=== PATIENT | male | born 1980 | race Caucasian/White ===

== ENCOUNTER → 2017-08-02 | Outpatient (CLI) | payer BC ==
--- NOTE | 2017-08-02 08:48 | US ---
EXAMINATION TYPE: US liver DATE OF EXAM: 08/02/2017 COMPARISON: NONE CLINICAL HISTORY: 37-year-old male Elevated liver enzymes, family history of Hemochromatosis. TECHNIQUE: Multiple sonographic images of the right upper quadrant are obtained. FINDINGS: Liver Length: 17.5 cm Gallbladder Wall: 0.2 cm CBD: 0.3 cm Right Kidney: 10.6 x 4.5 x 4.3 cm Pancreas: Tail obscured by overlying bowel gas, visualized portions show no gross abnormality. Liver: Measuring upper limits of normal in size. Heterogeneous, echogenic, and attenuating. Gallbladder: wnl Evidence for sonographic Barrientos's sign: No CBD: wnl as visualized, distal portion obscured by bowel gas Right Kidney: No hydronephrosis. IMPRESSION: Borderline hepatomegaly. There is diffuse increased echogenicity suggesting at least moderate hepatic steatosis. Correlate with LFTs, lipid profile, and patient risk factors.
== END ==
LOC: RADUSWWP 06:59
PROVIDERS: ATTEND Internal Medicine Hematology & Oncology
DX: R16.0 Hepatomegaly, not elsewhere classified (principal)
CPT/HCPCS: 76705

== ENCOUNTER → 2020-05-04 | Outpatient (CLI) | payer BC ==
--- NOTE | 2020-05-04 21:56 | MR ---
EXAMINATION TYPE: MR liver wo/w con DATE OF EXAM: 05/04/2020 COMPARISON: Ultrasound liver August 02, 2017. HISTORY: High Iron content, E83.110 Hereditary hemochromatosis CONTRAST: Standard multiplanar, multisequence MRI departmental protocol utilizing 10 mL intravenous Gadavist ga dolinium contrast. Imaging performed of the abdomen focusing on the liver. FINDINGS: Liver: Liver size measures within normal limits. No concerning solid or cystic mass. No significant s ignal decrease or increase on in and out of phase imaging. Suboptimal early arterial phase. Patent ma in portal vein without dilatation or filling defect. Patent small caliber hepatic veins draining into IVC. No surrounding ascites. Other: Lung bases are clear. Mild splenomegaly at 13.5 cm long axis axial image 379. Pancreas and bot h adrenal glands are within normal limits. No concerning renal mass or hydronephrosis. No suspicious small or large bowel dilatation. No abdominal ascites. Osseous structures are intact. Small hemangiom a right L2 vertebral body level. IMPRESSION: No worrisome intrahepatic mass or intrahepatic ductal dilatation. No significant infiltra tive process currently. Normal-size liver without ascites.
== END | disposition home or self-care (01) ==
LOC: RADMRIMAIN 17:05
PROVIDERS: ATTEND Internal Medicine Hematology & Oncology
DX: E83.110 Hereditary hemochromatosis (principal)
CPT/HCPCS: 74183; A9585

== ENCOUNTER 2023-06-14 07:37 | Inpatient (IN) | payer BC ==
[2023-06-14] MEDS ORDERED: SODIUM CHLORIDE 0.9% 1,000 ML IV STA ×2 (08:10→11:14)
[2023-06-14] MEDS ORDERED: ONDANSETRON 4 MG/2 ML VIAL IVP STA (08:10)
[2023-06-14] MEDS ORDERED: KETOROLAC 15 MG/ML 1 ML VIAL IVP STA (08:10)
--- NOTE | 2023-06-14 08:20 | ED ---
Back Pain HPI - General Chief Complaint: Back Pain/Injury Stated Complaint: Dizziness, N/V Time Seen by Provider: 06/14/23 07:59 Source: patient Limitations: no limitations - History of Present Illness Initial Comments: Patient is a 42-year-old male presenting to the emergency room with sudden onset of left flank pain earlier this morning with associated dizziness nausea and vomiting. He reports when he first woke this morning he was feeling fine and then suddenly he developed left flank pain that has been severe in nature. He took ibuprofen at home with no significant change in symptoms. He denies any chest pain, shortness of breath, abdominal pain, right-sided flank pain, urinary frequency, dysuria, urinary hesitancy, hematuria, fevers or chills. He denies any known history of nephrolithiasis; his only past medical history is of gout. - Related Data Home Medications Medication Instructions Recorded Confirmed allopurinoL [Zyloprim] 300 mg PO BID 06/14/23 06/14/23 Allergies Allergy/AdvReac Type Severity Reaction Status Date / Time No Known Allergies Allergy Verified 06/14/23 12:54 Review of Systems ROS Statement: Those systems with pertinent positive or pertinent negative responses have been documented in the HPI. ROS Other: All systems not noted in ROS Statement are negative. Past Medical History Additional Past Medical History / Comment(s): gout History of Any Multi-Drug Resistant Organisms: None Reported Past Surgical History: No Surgical Hx Reported Past Psychological History: No Psychological Hx Reported Smoking Status: Never smoker Past Alcohol Use History: Occasional Past Drug Use History: None Reported General Exam Limitations: no limitations General appearance: alert, other (in pain) Head exam: Present: atraumatic, normocephalic, normal inspection Eye exam: Present: normal appearance, PERRL, EOMI. Absent: scleral icterus, conjunctival injection, periorbital swelling ENT exam: Present: normal exam, mucous membranes moist Neck exam: Present: normal inspection, full ROM Respiratory exam: Present: normal lung sounds bilaterally. Absent: respiratory distress, wheezes, rales, rhonchi, stridor Cardiovascular Exam: Present: regular rate, normal rhythm, normal heart sounds. Absent: systolic murmur, diastolic murmur, rubs, gallop, clicks GI/Abdominal exam: Present: soft, normal bowel sounds. Absent: distended, tenderness, guarding, rebound, rigid Extremities exam: Present: normal inspection, full ROM. Absent: pedal edema, joint swelling Back exam: Present: normal inspection, full ROM, CVA tenderness (L). Absent: CVA tenderness (R) Neurological exam: Present: alert, oriented X3, CN II-XII intact Psychiatric exam: Present: normal affect, normal mood Course Vital Signs 06/14/23 06/14/23 07:52 10:30 Temperature 97.8 F Pulse Rate 64 67 Respiratory 18 18 Rate Blood Pressure 121/77 114/70 O2 Sat by Pulse 100 99 Oximetry Medical Decision Making - Medical Decision Making Was pt. sent in by a medical professional or institution (, PA, COMPRESS ENGINEER, urgent care, hospital, or retirement...) When possible be specific @ -No Did you speak to anyone other than the patient for history (EMS, parent, family, police, friend...)? What history was obtained from this source @ -No Did you review nursing and triage notes (agree or disagree)? Why? @ -I reviewed and agree with nursing and triage notes Were old charts reviewed (outside hosp., previous admission, EMS record, old EKG, old radiological studies, urgent care reports/EKG's, retirement records)? Report findings @ -No old charts were reviewed Differential Diagnosis (chest pain, altered mental status, abdominal pain women, abdominal pain men, vaginal bleeding, weakness, fever, dyspnea, syncope, he adache, dizziness, GI bleed, back pain, seizure, CVA, palpatations, mental health, musculoskeletal)? @ -Differential Back Pain: Strain, zoster, cauda equina syndrome, epidural abscess, vertebral osteomyelitis, discitis, fracture, subluxation, disc herniation, DJD, spinal stenosis, dissection, AAA, pancreatitis, peptic ulcer disease, pyelonephritis, kidney stone, this is not meant to be an all-inclusive list. EKG interpreted by me (3pts min.). @ -None done X-rays interpreted by me (1pt min.). @ -None done CT interpreted by me (1pt min.). @ -CT abdomen and pelvis: No free fluid or air in the abdomen. Left renal calculi with mild hydronephrosis. Report per radiologist mild left renal edema and pernephric stranding U/S interpreted by me (1pt. min.). @ -None done What testing was considered but not performed or refused? (CT, X-rays, U/S, labs)? Why? @ -None What meds were considered but not given or refused? Why? @ -None Did you discuss the management of the patient with other professionals (professionals i.e. , PA, COMPRESS ENGINEER, lab, RT, psych nurse, clinical social worker, residential coordinator, teacher, personnel officer, ed case manager)? Give summary @ -Yes, spoke with Dr. Oliver twice regarding patient's presentation he initially advised attempt pain control and discharge on oral antibiotics and Flomax; second conversation included lack of pain control despite Toradol, morphine and Dilaudid along with 2 IV fluid boluses and a gram of Rocephin. He advised admission to his services with plan for possible intervention tomorrow. Was smoking cessation discussed for >3mins.? @ -No Was critical care preformed (if so, how long)? @ -No Were there social determinants of health that impacted care today? How? (Homelessness, low income, unemployed, alcoholism, drug addiction, transportation, low edu. Level, literacy, decrease access to med. care, half-way, rehab)? @ -No Was there de-escalation of care discussed even if they declined (Discuss DNR or withdrawal of care, Hospice)? DNR status @ -No What co-morbidities impacted this encounter? (DM, HTN, Smoking, COPD, CAD, Cancer, CVA, ARF, Chemo, Hep., AIDS, mental health diagnosis, sleep apnea, morbid obesity)? @ -None Was patient admitted / discharged? Hospital course, mention meds given and route, prescriptions, significant lab abnormalities, going to OR and other pe rtinent info. @ -42-year-old male presenting to the emergency room with sudden onset of left flank pain earlier this morning with associated dizziness nausea and vomiting. He reports when he first woke this morning he was feeling fine and then suddenly he developed left flank pain that has been severe in nature. Posterior flank pain workup with CBC, CMP, amylase, lipase, urinalysis with culture along with CT of the abdomen and pelvis without contrast. Will give Zofr an for nausea, 1 L of IV fluids and 15 mg of Toradol. Pain continues despite Toradol will give morphine. Laboratory studies include a normal CBC and a CMP with elevated glucose at 144 elevated albumin of 5.1 no other abnormalities on CMP including a normal renal function and normal electrolytes. Urinalysis reveals trace protein trace blood and moderate leukocyte esterase, 9 RBCs, 28 wbc, rare WBC clumps and rare mucus with no bacteria identified. Computed tomography scan shows 2 mm left renal calculi in the UVJ with mild hydronephrosis, renal edema and perinephric stranding. Pain persists despite morphine. Spoke with Dr. Llanes twice regarding patient's presentation inability to control pain; he is accepting of admission to his service for pain control and possible intervention for obstructive nephrolithiasis. Will place admission orders with continued pain control, IV hydration and ceftriaxone daily. Will admit patient in stable condition to observation under urology for further evaluation and treatment of obstructive nephrolithiasis Undiagnosed new problem with uncertain prognosis? @ -No Drug Therapy requiring intensive monitoring for toxicity (Heparin, Nitro, Insulin, Cardizem)? @ -No Were any procedures done? @ -No Diagnosis/symptom? @ -Obstructive nephrolithiasis Acute, or Chronic, or Acute on Chronic? @ -Acute Uncomplicated (without systemic symptoms) or Complicated (systemic symptoms)? @ -Complicated Side effects of treatment? @ -No Exacerbation, Progression, or Severe Exacerbation? @ -No Poses a threat to life or bodily function? How? (Chest pain, [place], [place], pneumonia, PE, COPD, DKA, ARF, appy, cholecystitis, CVA, Diverticulitis, Homicidal, Suicidal, threat to staff... and all critical care pts) @ -Yes, mild hydronephrosis with perinephric stranding at risk for worsening infective renal stone, sepsis, septic shock and . Case discussed with Dr. Brennan. - Lab Data Result diagrams: 06/14/23 08:42 06/14/23 08:42 Lab Results 06/14/23 06/14/23 06/14/23 Range/Units 07:55 08:42 08:42 WBC 8.3 (3.8-10.6) k/uL RBC 5.02 (4.30-5.90) m/uL Hgb 16.5 (13.0-17.5) gm/dL Hct 48.7 (39.0-53.0) % MCV 96.9 (80.0-100.0) fL MCH 32.9 (25.0-35.0) pg MCHC 34.0 (31.0-37.0) g/dL RDW 13.0 (11.5-15.5) % Plt Count 182 (150-450) k/uL MPV 7.8 Neutrophils % 69 % Lymphocytes % 22 % Monocytes % 5 % Eosinophils % 2 % Basophils % 0 % Neutrophils # 5.7 (1.3-7.7) k/uL Lymphocytes # 1.8 (1.0-4.8) k/uL Monocytes # 0.4 (0-1.0) k/uL Eosinophils # 0.2 (0-0.7) k/uL Basophils # 0.0 (0-0.2) k/uL Sodium 138 (137-145) mmol/L Potassium 4.1 (3.5-5.1) mmol/L Chloride 101 (98-107) mmol/L Carbon Dioxide 22 (22-30) mmol/L Anion Gap 15 mmol/L BUN 17 (9-20) mg/dL Creatinine 1.05 (0.66-1.25) mg/dL Est GFR (CKD-EPI)AfAm >90 (>60 ml/min/1.73 sqM) Est GFR (CKD-EPI)NonAf 87 (>60 ml/min/1.73 sqM) Glucose 144 H (74-99) mg/dL Calcium 9.5 (8.4-10.2) mg/dL Total Bilirubin 1.3 (0.2-1.3) mg/dL AST 33 (17-59) U/L ALT 29 (4-49) U/L Alkaline Phosphatase 72 (38-126) U/L Total Protein 8.0 (6.3-8.2) g/dL Albumin 5.1 H (3.5-5.0) g/dL Lipase 61 (23-300) U/L Urine Color Yellow Urine Appearance Clear (Clear) Urine pH 6.5 (5.0-8.0) Ur Specific [place] 1.017 (1.001-1.035) Urine Protein Trace H (Negative) Urine Glucose (UA) Negative (Negative) Urine Ketones Negative (Negative) Urine Blood Trace H (Negative) Urine Nitrite Negative (Negative) Urine Bilirubin Negative (Negative) Urine Urobilinogen <2.0 (<2.0) mg/dL Ur Leukocyte Esterase Moderate H (Negative) Urine RBC 9 H (0-5) /hpf Urine WBC 28 H (0-5) /hpf Urine WBC Clumps Rare H (None) /hpf Urine Mucus Rare H (None) /hpf - Radiology Data Radiology results: report reviewed, image reviewed Disposition Clinical Impression: Hydronephrosis, Nephrolithiasis Disposition: ADMITTED IP TO THIS [facility] Condition: Stable Referrals: Gagan Caceres [Primary Care Provider] - 1-2 days Time of Disposition: 12:14
[2023-06-14 08:36] LABS: Appearance,Urine Clear (Clear); Bilirubin,Urine Negative (Negative); Blood,Urine Trace (Negative); Glucose,Urine (UA) Negative (Negative); Ketones,Urine Negative (Negative); Leukocyte Esterase,Urine Moderate (Negative); Mucus,Urine Rare /hpf; Nitrite,Urine Negative (Negative); PH, Urine 6.5 (5.0-8.0); Protein,Urine Trace (Negative); RBC,Urine 9 /hpf (0-5); Specific Gravity,Urine 1.017 (1.001-1.035); Urobilinogen,Urine <2.0 mg/dL (<2.0); WBC,Urine 28 /hpf (0-5)
[2023-06-14 08:42] LABS: Color,Urine Yellow
[2023-06-14] MEDS ORDERED: MORPHINE SULFATE 4 MG/ML SYRINGE IVP STA (09:32)
[2023-06-14 09:41] LABS: ALT 29 U/L (4-49); AST 33 U/L (17-59); African American GFR (CKD) >90 (>60 ml/min/1.73 sqM); Albumin 5.1 g/dL (3.5-5.0); Alkaline Phosphatase 72 U/L (38-126); Anion Gap 15 mmol/L; Blood Urea Nitrogen 17 mg/dL (9-20); Calcium 9.5 mg/dL (8.4-10.2); Carbon Dioxide 22 mmol/L (22-30); Chloride 101 mmol/L (98-107); Glucose 144 mg/dL (74-99); Lipase 61 U/L (23-300); Non-African American GFR(CKD) 87 (>60 ml/min/1.73 sqM); Potassium 4.1 mmol/L (3.5-5.1); Sodium 138 mmol/L (137-145); Total Bilirubin 1.3 mg/dL (0.2-1.3)
[2023-06-14 09:49] LABS: Basophils % (A) 0 %; Eosinophils # (A) 0.2 k/uL (0-0.7); Eosinophils % (A) 2 %; HCT 48.7 % (39.0-53.0); HGB 16.5 gm/dL (13.0-17.5); Lymphocytes # (A) 1.8 k/uL (1.0-4.8); Lymphocytes % (A) 22 %; MCH 32.9 pg (25.0-35.0); MCV 96.9 fL (80.0-100.0); Mean Platelet Volume 7.8; Monocytes # (A) 0.4 k/uL (0-1.0); Monocytes % (A) 5 %; Neutrophils # (A) 5.7 k/uL (1.3-7.7); Neutrophils % (A) 69 %; Platelet Count 182 k/uL (150-450); RBC 5.02 m/uL (4.30-5.90); WBC 8.3 k/uL (3.8-10.6)
--- NOTE | 2023-06-14 10:11 | CT ---
EXAMINATION TYPE: CT abdomen pelvis wo con DATE OF EXAM: 06/14/2023 COMPARISON: None HISTORY: left flank pain CT DLP: 780.4 mGycm Examination of the solid and hollow viscera is limited given the lack of contrast. FINDINGS: LUNG BASES: No evidence for nodule. No evidence for infiltrate. LIVER/GB: The gallbladder is unremarkable. No space-occupying hepatic lesion. PANCREAS: No pancreatic mass identified. No inflammatory process seen. SPLEEN: No evidence for splenomegaly. No intrasplenic lesions seen. ADRENALS: No adrenal nodules identified. No evidence for thickening. KIDNEYS: No evidence for renal mass. There is a 2 mm left UVJ calculus resulting in mild left-sided h ydronephrosis. Mild left renal edema and perinephric stranding. Nonobstructing calculus measuring 2 m m or incised upper pole right kidney. Nonobstructing 1 mm calculi midpole left kidney and lower pole left kidney. BOWEL: Appendix has a normal appearance. No evidence of bowel obstruction. No inflammatory process. Lymph nodes: No evidence for adenopathy greater than 1 cm. Abdominal aorta: Atheromatous changes seen. No evidence for aneurysm. Genital organs: No significant abnormality. Other: No significant abnormality. IMPRESSION: There is a 2 mm left UVJ calculus resulting in mild left-sided hydronephrosis. Mild left renal edema and perinephric stranding.
[2023-06-14] MEDS ORDERED: cefTRIAXone IN SWFI 1,000 MG/10 ML SYRINGE IVP STA (10:52)
[2023-06-14] MEDS ORDERED: NALOXONE 0.4 MG/ML 1 ML VIAL IV PRN (12:14)
[2023-06-14] MEDS ORDERED: ONDANSETRON 4 MG/2 ML VIAL IVP PRN (12:14)
[2023-06-14] MEDS ORDERED: HYDROmorphone 1 MG/ML 1 ML SYRINGE IVP PRN (12:14)
[2023-06-14] MEDS ORDERED: KETOROLAC 15 MG/ML 1 ML VIAL IVP PRN (12:14)
[2023-06-14] MEDS ORDERED: HYDROcodone/APAP 5-325MG 1 EACH TAB PO PRN (12:14)
[2023-06-14] MEDS ORDERED: SODIUM CHLORIDE 0.9% 1,000 ML IV SCH (12:15)
[2023-06-14] MEDS ORDERED: HYDROmorphone 0.5 MG/0.5 ML SYRINGE IVP STA (12:24)
--- NOTE | 2023-06-14 17:58 | P.GSHP ---
History of Present Illness H&P Date: 06/14/23 Chief Complaint: Left renal colic The patient is a 43-year-old white male with no prior history of urolithiasis. This morning, he experienced acute onset of left flank pain, associated with nausea, vomiting, and chills. He underwent evaluation in the ER, including a CT scan revealing mild left hydronephrosis due to a 2 mm left distal ureteral calculus. Additional bilateral small renal calculi were seen. The decision was made for him to be admitted due to intractable symptoms. However, his symptoms have improved throughout the day and he was asymptomatic by late afternoon. He is unaware of having passed the calculus. - Constitutional Constitutional: Reports chills - Gastrointestinal Gastrointestinal: Reports nausea, Reports vomiting - Genitourinary (Male) Genitourinary: Reports flank pain, Reports kidney stones, Denies dysuria, Denies hematuria Past Medical History Additional Past Medical History / Comment(s): Gout History of Any Multi-Drug Resistant Organisms: None Reported Past Surgical History: No Surgical Hx Reported Past Psychological History: No Psychological Hx Reported Smoking Status: Never smoker Past Alcohol Use History: Occasional Past Drug Use History: None Reported Medications and Allergies Home Medications Medication Instructions Recorded Confirmed Type Ciprofloxacin HCl [Cipro] 250 mg PO Q12HR #10 tablet 06/14/23 Rx HYDROcodone/APAP 5-325MG [[place] 1 - 2 tab PO Q4HR PRN #6 tab 06/14/23 Rx 5-325] Ketorolac [Toradol] 10 mg PO Q6HR PRN #10 tab 06/14/23 Rx allopurinoL [Zyloprim] 300 mg PO BID 06/14/23 06/14/23 History Allergies Allergy/AdvReac Type Severity Reaction Status Date / Time No Known Allergies Allergy Verified 06/14/23 12:54 Surgical - Exam Vital Signs Temp Pulse Resp BP Pulse Ox 97.8 F 64 18 121/77 100 06/14/23 07:52 06/14/23 07:52 06/14/23 07:52 06/14/23 07:52 06/14/23 07:52 - General well developed, well nourished, no distress - Neck no masses, trachea midline - Respiratory normal respiratory effort - Abdomen Abdomen: soft, non tender, no guarding, no rigid, no rebound - Psychiatric oriented to time, oriented to person, oriented to place, speech is normal, memory intact Results - Labs 06/14/23 08:42 06/14/23 08:42 Abnormal Lab Results - Last 24 Hours (Table) 06/14/23 06/14/23 Range/Units 07:55 08:42 Glucose 144 H (74-99) mg/dL Albumin 5.1 H (3.5-5.0) g/dL Urine Protein Trace H (Negative) Urine Blood Trace H (Negative) Ur Leukocyte Esterase Moderate H (Negative) Urine RBC 9 H (0-5) /hpf Urine WBC 28 H (0-5) /hpf Urine WBC Clumps Rare H (None) /hpf Urine Mucus Rare H (None) /hpf Diabetes panel 06/14/23 Range/Units 08:42 Sodium 138 (137-145) mmol/L Potassium 4.1 (3.5-5.1) mmol/L Chloride 101 (98-107) mmol/L Carbon Dioxide 22 (22-30) mmol/L BUN 17 (9-20) mg/dL Creatinine 1.05 (0.66-1.25) mg/dL Glucose 144 H (74-99) mg/dL Calcium 9.5 (8.4-10.2) mg/dL AST 33 (17-59) U/L ALT 29 (4-49) U/L Alkaline Phosphatase 72 (38-126) U/L Total Protein 8.0 (6.3-8.2) g/dL Albumin 5.1 H (3.5-5.0) g/dL Calcium panel 06/14/23 Range/Units 08:42 Calcium 9.5 (8.4-10.2) mg/dL Albumin 5.1 H (3.5-5.0) g/dL Pituitary panel 06/14/23 Range/Units 08:42 Sodium 138 (137-145) mmol/L Potassium 4.1 (3.5-5.1) mmol/L Chloride 101 (98-107) mmol/L Carbon Dioxide 22 (22-30) mmol/L BUN 17 (9-20) mg/dL Creatinine 1.05 (0.66-1.25) mg/dL Glucose 144 H (74-99) mg/dL Calcium 9.5 (8.4-10.2) mg/dL Adrenal panel 06/14/23 Range/Units 08:42 Sodium 138 (137-145) mmol/L Potassium 4.1 (3.5-5.1) mmol/L Chloride 101 (98-107) mmol/L Carbon Dioxide 22 (22-30) mmol/L BUN 17 (9-20) mg/dL Creatinine 1.05 (0.66-1.25) mg/dL Glucose 144 H (74-99) mg/dL Calcium 9.5 (8.4-10.2) mg/dL Total Bilirubin 1.3 (0.2-1.3) mg/dL AST 33 (17-59) U/L ALT 29 (4-49) U/L Alkaline Phosphatase 72 (38-126) U/L Total Protein 8.0 (6.3-8.2) g/dL Albumin 5.1 H (3.5-5.0) g/dL - Imaging CT scan - abdomen: report reviewed, image reviewed Assessment and Plan Assessment: It is unclear whether or not the patient has passed the calculus. If he has not, he was advised that the likelihood of spontaneous passage is greater than 95%. Urinalysis shows evidence of mild pyuria, but there is no evidence of fever or leukocytosis. A urine culture was sent. (1) Calculus of ureter Current Visit: Yes Status: Acute Code(s): N20.1 - CALCULUS OF URETER SNOMED Code(s): 27587438 (2) Ureteral stone with hydronephrosis Current Visit: Yes Status: Acute Code(s): N13.2 - HYDRONEPHROSIS WITH RENAL AND URETERAL CALCULOUS OBSTRUCTION SNOMED Code(s): 8140586170 Plan: The patient will be discharged home on ciprofloxacin and analgesics. He was advised to drink plenty of fluids and to strain his urine. He was also advised to contact me if he develops intractable symptoms, or return to the ER. He will otherwise follow-up in 2 weeks. Time with Patient: Greater than 30
[2023-06-14 18:13] VITALS: BP 126/92; PULSE 57; RESP 16; TEMP 98.4
[2023-06-15] MEDS ORDERED: cefTRIAXone IN SWFI 1,000 MG/10 ML SYRINGE IVP SCH (09:00)
== END 2023-06-14 18:11 | disposition home or self-care (01) | DRG 690 ==
LOC: EC 07:37 → 4SSUR 13:40
PROVIDERS: ADMIT Urology; ATTEND Urology
DX: N13.6 Pyonephrosis (principal); R73.9 Hyperglycemia, unspecified; Z79.899 Other long term (current) drug therapy
CPT/HCPCS: 36415; 74176; 80053; 81001; 83690; 85025; 87086; 96374; 96375; 99285

== ENCOUNTER → 2023-08-15 | Outpatient (CLI) | payer BC ==
--- NOTE | 2023-08-16 08:08 | XR ---
EXAMINATION TYPE: XR KUB DATE OF EXAM: 08/15/2023 HISTORY: Pain Comparison: None. Single KUB is submitted for interpretation. Findings: Right renal calculi: None Visualized. Right ureteral calculi: None Visualized. Left renal calculi: None Visualized. Left ureteral calculi: None Visualized. Pelvic calcifications: None Visualized. Bowel gas pattern is unremarkable. No free air. No mass effects. IMPRESSION: 1. No distinct renal calculus seen.
--- NOTE | 2023-08-16 22:40 | US ---
EXAMINATION TYPE: US kidneys/renal and bladder DATE OF EXAM: 08/15/2023 COMPARISON: CT 06/14/2023 CLINICAL INDICATION: Male, 43 years old with history of N20.0 CALCULUS OF KIDNEY N13.2 HYDRONEPHROSIS ; Calculus of kidney, hydronephrosis. EXAM MEASUREMENTS: Right Kidney: 11.5 x 6.1 x 5.4 cm Left Kidney: 11.4 x 5.9 x 5.6 cm Right Kidney: No hydronephrosis or masses seen Left Kidney: No hydronephrosis or masses seen Bladder: Appears wnl Bilateral Jets seen: Yes IMPRESSION: 1. Unremarkable renal ultrasound. No hydronephrosis or renal stones evident
== END | disposition home or self-care (01) ==
LOC: RADUSWWP 16:02
PROVIDERS: ATTEND Urology
DX: N13.2 Hydronephrosis with renal and ureteral calculous obstruction (principal)
CPT/HCPCS: 74018; 76770